=== PATIENT | male | born 1955 | race Caucasian/White ===

== ENCOUNTER → 2024-09-15 10:52 | Outpatient (REF) | payer MEDICARE, BC, SELFPAY ==
[2024-09-15 12:04] LABS: % Basophils 0.2 % (0-2); % Eosinophils 1.2 % (0-6); % Immature Granulocytes 0.2 % (0-0.5); % Lymphocytes 32.7 % (20.5-51.1); % Monocytes 4.1 % (1.7-9.3); % Neutrophils 61.6 % (42.2-75.2); Absolute Eosinophils 0.1 10^3/uL (0-0.7); Absolute Lymphocytes 1.7 10^3/uL (1.2-3.4); Absolute Monocytes 0.2 10^3/uL (0.1-0.6); Absolute Neutrophils 3.2 10^3/uL (1.4-6.5); Hematocrit 35.7 % (39.0-52.0); Hemoglobin 12.6 g/dL (13.0-18.0); Mean Corp Hgb Conc. 35.3 g/dL (33.0-37.0); Mean Corpuscular Hgb 33.4 pg (27.0-31.0); Mean Corpuscular Volume 94.7 fL (80.0-94.0); Mean Platelet Volume 10.1 fL (7.4-10.4); Nucleated Red Blood Cells % 0 % (-); Platelet Count 231 10^3/uL (130-400); Red Blood Cell Count 3.77 10^6/uL (4.70-6.10); Red Cell Dist. Width 12.6 % (11.5-14.5); White Blood Cell Count 5.1 10^3/uL (4.8-10.8)
== END ==
LOC: REG 10:52
PROVIDERS: ATTENDING PHYSICIAN Internal Medicine Hematology & Oncology; FAMILY PHYSICIAN Family Medicine
DX: D64.9 Anemia, unspecified (principal); C83.8 Other non-follicular lymphoma
CPT/HCPCS: 36415; 85025

== ENCOUNTER 2025-01-01 16:39 | Emergency (ER) | payer MEDICARE, BC, SELFPAY ==
[2025-01-01 16:41] VITALS: BP 162/94
--- NOTE | 2025-01-01 17:10 | ED.GENMED ---
History of Present Illness
General
Chief Complaint: Skin Surface Trauma
Source: patient
Exam Limitations: none
Time Seen by Provider: 01/01/25 16:56
History of Present Illness
History of Present Illness:
See MDM
Past History
Past History
ED Past Medical History: Cancer
ED Past Surgical History: Appendectomy
Phy Exam
Physical Exam
Physical Exam:
See MDM
Course
Orders/Labs/Results
Orders:
Orders
01/01/25 17:04
Amoxicillin 875 mg/Clav 125 mg [Augmentin 875 mg/125 mg] 1 tablet PO NOW STA
Tetanus/Diphth/Acelpertussis [Adacel] 0.5 ml IM .ONCE ONE
Finger(s)/Thumb 2 View Rt [CR Finger(s)/thumb Min 2 Vw Rt] Urgent
Comment:
Reason For Exam: distal index finger injury
Vital Signs
Initial and Last Documented VS:
Initial Vital Signs
Temp Pulse Resp BP Pulse Ox
98 F 74 16 162/94 98
01/01/25 16:41 01/01/25 16:41 01/01/25 16:41 01/01/25 16:41 01/01/25 16:41
Last Documented Vital Signs
Temp Pulse Resp BP Pulse Ox
98 F 74 16 162/94 98
01/01/25 16:41 01/01/25 16:41 01/01/25 16:41 01/01/25 16:41 01/01/25 16:41
Procedures
Laceration Closure
Right Distal Palmar Second Finger:
Status of Wound: dirty
Size of Wound in cm: 2.5
Description of Wound Edges: ragged
Preparation: cleaned with Betadine
Anesthesia: 1% Lidocaine
Revision/Debridement: minor revision
Wound exploration: extensive cleaning of contaminated wound and explored to base- no FB
Type of Closure: single layer closure
Skin Closure Material: 4-0 nylon
Number of sutures: 7
MDM/Problems Addressed
Differential Diagnosis Includes:
HPI and MDM Narrative:
69-year-old male presenting for evaluation of right index finger injury. Patient was trying to fix his tractor and replace the alternator belt. While he was doing this, there is something obstructing you. He tried to grab the object and his
finger got caught in the belt while it was moving. Patient is right-hand dominant. On exam, he has a large laceration to the pulp of his right index finger. Sensation appears to be grossly intact. Less than 2 seconds. I can palpate a fracture
to the distal phalanx. Nailbed in place. Will update tetanus and start Augmentin with concern for open fracture
Physical exam
General: Well appearing and non-toxic
HEENT: protecting airway
Neck: appears supple
CV: No evidence of cyanosis
Resp: No accessory muscle use
Abd: Non-distended
Extremities: 2.5 cm laceration to right index finger along the pulp. Decreased distal range of motion. Sensation grossly intact. Cap refill less than 2 seconds. Nailbed intact
Neuro: alert
Psych: Normal affect
Skin: Right index finger from
Problems Addressed including Acute and Chronic Conditions affecting care:
1. Right index finger injury
Acuity: acute
Prognosis: stable
Details: There is clinical concern for open fracture. Tetanus updated and Augmentin started.
Updates
X-ray consistent with fracture through the distal phalanx. Discussed taking the antibiotics as prescribed and treating this as an open fracture and follow-up with hand
Differential Diagnosis (but not limited to): Open fracture, contusion, laceration
Testing considered: Hand x-ray but injury appears to be localized to index finger
Drug therapy (if applicable): OTC meds, please see d/c instruction regarding Rx drugs
Amount and/or Complexity of Data Reviewed
Clinical info obtained from: Patient
External data reviewed: N/A
Labs I independently reviewed (but not limited to): N/A
Radiology: X-ray independently reviewed: Fracture to distal phalanx of right index finger
Pulse Ox: not hypoxic
EKG independently reviewed: N/A
Practical Nursing Faculty: N/A
Critical Care: N/A
Risk of Complication:
Social Determinants of health: Good social support
Discussed with other providers: N/A
Escalation of Care includes Admit/Obs: After being observed in the Emergency Department, pt stable for discharge.
Occasional wrong word or 'sound a like' substitutions may have occurred due to the inherent limitations of voice recognition software. Read the chart carefully and recognize, using context, where substitutions have occurred.
*Critical Care Note
Total Time (30-74mins, 75-104mins- exclusive of procedures): Not Applicable
ED Attending Note
-
Portions of this chart may have been created with voice recognition software.� Occasional wrong word or��sound alike� substitutions may have occurred due to the inherent limitations of voice recognition software.
Discharge Plan
Departure
Patient Disposition: Home (Routine Discharge)
Date of Disposition: 01/01/25
Time of Disposition: 18:20
Patient with high blood pressure during this ER visit?: Yes
Discharge Problem:
Open fracture of finger of right hand
Instructions: Laceration Repair With Stitches (DC), BLOOD PRESSURE
Prescriptions:
New
amoxicillin-pot clavulanate 875-125 mg tablet
1 tab PO BID Qty: 14 0RF
No Action
multivitamin 1 EACH tablet
1 ea PO DAILY
cyanocobalamin (vitamin B-12) 1,000 MCG tablet
1,000 mcg PO DAILY AT 0700
chondroitin sulfate A sodium [Chondroitin Sulfate] 400 MG capsule
400 mg PO DAILY AT 0700
mecobalamin (vitamin B12) [B12 Active] 1,000 MCG tablet,chewable
1,000 mcg PO DAILY
Referrals:
Terrell Luna MD [Family Provider] -
Bharat Pemberton MD [Active] -
Activity Restrictions/Additional Instructions:
Keep wound clean and dry, change dressing if it becomes soiled or wet. Watch for signs of infection: fever over 100.5', increasing pain, red streaks around wound, swelling, drainage of pus, or bad smell. If any of these happen, return to ED
promptly. Return to ED or make an appointment with your doctor to have the 7 sutures removed in 10 days. All wounds may scar, however you may reduce the appearance of scarring by avoiding sun exposure to the scar and applying skin moisturizer with
spf protection to the scar once the wound is healed.
Please call the orthopedist for first available appointment. Please explain you were seen in the emergency department and need further evaluation and treatment.
Interventions
Interventions:
*Risk Screen - Suicide Last Done: 01/01/25 16:46
*General Assessment Last Done: 01/01/25 17:14
*Neglect/Abuse Screening Last Done: 01/01/25 16:46
*ED COVID-19 Vaccine History Last Done: 01/01/25 17:14
ED-Skin Assessment Last Done: 01/01/25 17:15
Discharge Date and Time
Print Language: [id number]
[2025-01-01 17:14] VITALS: BMI 25.9
[2025-01-01] MEDS: AUGMENTIN 875 MG/125 MG 1 TABLET PO (17:49)
[2025-01-01] MEDS: ADACEL 0.5 ML IM (17:51)
== END 2025-01-01 18:25 | disposition home or self-care (01) ==
LOC: EMR 16:39
PROVIDERS: EMERGENCY PHYSICIAN Student in an Organized Health Care Education/Training Program; FAMILY PHYSICIAN Family Medicine
DX: S62.600B Fracture of unspecified phalanx of right index finger, initial encounter for open fracture (principal); X58.XXXA Exposure to other specified factors, initial encounter; Z23 Encounter for immunization
CPT/HCPCS: 99283; 12001; 90471; 73140; 90715

== ENCOUNTER → 2025-09-21 14:59 | Outpatient (REF) | payer MEDICARE, BC, SELFPAY ==
[2025-09-21 16:33] LABS: Hematocrit 35.0 % (39.0-52.0); Hemoglobin 12.0 g/dL (13.0-18.0); Mean Corp Hgb Conc. 34.3 g/dL (33.0-37.0); Mean Corpuscular Volume 92.8 fL (80.0-94.0); Nucleated Red Blood Cells % 0 % (-); Platelet Count 276 10^3/uL (130-400); Red Cell Dist. Width 13.1 % (11.5-14.5)
== END ==
LOC: REG 14:59
PROVIDERS: ATTENDING PHYSICIAN Internal Medicine Hematology & Oncology; FAMILY PHYSICIAN Family Medicine; OTHER PHYSICIAN Internal Medicine Hematology & Oncology
DX: D64.9 Anemia, unspecified (principal); C83.8 Other non-follicular lymphoma
CPT/HCPCS: 36415; 85025